=== PATIENT | male | born 1935 | race Caucasian/White ===

== ENCOUNTER 2024-03-22 22:08 | Inpatient (IN) | payer MEDICARE, OTHER ==
[2024-03-22 22:26] LABS: BASOPHILS ABSOLUTE AUTO 0.04 K/uL (0.00-0.10); BASOPHILS PERCENT AUTO 0.1 % (0.1-1.3); HEMATOCRIT 30.7 % (38.4-49.7); HEMOGLOBIN 9.9 g/dL (12.9-16.9); IMMATURE GRAN PERCENT AUTO 1.4 % (0.0-0.7); LYMPHOCYTES ABSOLUTE AUTO 1.06 K/uL (0.8-3.3); MEAN CORPUSCULAR HGB CONC 32.2 g/dL (31.6-35.5); MEAN CORPUSCULAR VOLUME 77.5 fL (81.4-99.0); MONOCYTES ABSOLUTE AUTO 1.73 K/uL (0.20-0.90); MONOCYTES PERCENT AUTO 4.9 % (3.3-12.6); NEUTROPHILS ABSOLUTE AUTO 31.83 K/uL (1.0-7.6); NEUTROPHILS PERCENT AUTO 90.6 % (40.0-78.1); PLATELET COUNT,PLT 155 K/uL (130-375); RED BLOOD CELL COUNT 3.96 M/uL (4.14-5.76)
[2024-03-22 22:31] LABS: EOSINOPHILS ABSOLUTE AUTO 0.01 K/uL (0.00-0.40); WHITE BLOOD CELL COUNT,WBC 35.2 K/uL (3.2-11.0)
[2024-03-22 22:48] LABS: APPEARANCE,URINE TURBID (CLEAR); BILIRUBIN,URINE NEGATIVE (NEGATIVE); COLOR,URINE YELLOW (YELLOW); GLUCOSE,URINE NEGATIVE (NEGATIVE); KETONES,URINE NEGATIVE (NEGATIVE); LEUKOCYTE ESTERASE,URINE LARGE (NEGATIVE); NITRITE,URINE NEGATIVE (NEGATIVE); OCCULT BLOOD,URINE LARGE (NEGATIVE); PH,URINE 5.5 (5.0-8.0); PROTEIN,URINE >=300 mg/dL (NEGATIVE); UROBILINOGEN,URINE 0.2 EU/dL (0.2-1.0)
[2024-03-22 22:55] LABS: ALANINE AMINOTRANSFERASE,ALT 14 U/L (12-78); ALBUMIN 2.6 g/dL (3.4-5.0); ALKALINE PHOSPHATASE 115 U/L (46-116); ASPARTATE AMNIOTRANSFERASE,AST 27 U/L (15-37); BILIRUBIN TOTAL 1.1 mg/dL (0.2-1.0); BLOOD UREA NITROGEN,BUN 38 mg/dL (7-18); C-REACTIVE PROTEIN 20.43 mg/dL (<0.50); CALCIUM 7.8 mg/dL (8.5-10.1); CARBON DIOXIDE,CO2 25 mmol/L (21-32); CHLORIDE,CL 104 mmol/L (100-108); CREATININE 2.4 mg/dL (0.8-1.3); EST CRCL DRUG DOSING (CG) 21.68 mL/min; ESTIMATED GFR 25 mL/min (>60); GLUCOSE RANDOM 106 mg/dL (74-106); POTASSIUM,K 3.1 mmol/L (3.6-5.2); PROTEIN TOTAL,TP 6.6 g/dL (6.4-8.2); SODIUM,NA 141 mmol/L (140-148)
[2024-03-22 23:07] LABS: A/G RATIO 0.7 (1.2-2.2); ANION GAP 15.1 mmol/L (5.0-14.0); LACTIC ACID 2.5 mmol/L (0.4-2.0)
[2024-03-22 23:18] LABS: AMORPHOUS SEDIMENT,URINE NOT SEEN; BACTERIA,URINE MANY; EPITHELIAL CELLS,URINE FEW; MUCUS,URINE FEW; WBC,URINE 75-100 (0-5)
[2024-03-23] MEDS: cefTRIAXone 2 GM in Sodium Chloride 0.9% 50 ML IV ONE (00:40)
[2024-03-23] MEDS: metroNIDAZOLE/Normal Saline 500 MG in Premix Bag 1 BAG IV ONE (00:40)
[2024-03-23] MEDS: VANCOmycin 1.5 GM in Sodium Chloride 0.9% 250 ML IV ONE (00:41)
[2024-03-23] MEDS: Sodium Chloride 0.9% 500 ML IV ONE (00:44)
[2024-03-23] MEDS: Acetaminophen 325 MG Tab PO ONE (01:38)
[2024-03-23] MEDS ORDERED: Ondansetron 4 MG Tab.DIS PO PRN (02:07)
[2024-03-23] MEDS ORDERED: Cyclobenzaprine 10 MG Tab PO PRN (02:07)
[2024-03-23] MEDS ORDERED: Ondansetron 4 MG/2 ML SDV IV PRN (02:07)
[2024-03-23] MEDS ORDERED: Melatonin 3 MG Tab PO PRN (02:07)
[2024-03-23] MEDS ORDERED: Acetaminophen 325 MG Tab PO PRN (02:07)
[2024-03-23] MEDS: Albuterol/Ipratropium 3.0-0.5 MG/3 ML Neb Soln NEB SCH (02:53)
[2024-03-23] MEDS: Sodium Chloride 0.9% 1,000 ML IV SCH ×2 (02:57→21:59)
[2024-03-23 03:41] LABS: HEMOGLOBIN 9.1 g/dL (12.9-16.9); MEAN CORPUSCULAR HGB CONC 32.5 g/dL (31.6-35.5); MEAN CORPUSCULAR VOLUME 76.9 fL (81.4-99.0); RED BLOOD CELL COUNT 3.64 M/uL (4.14-5.76)
[2024-03-23 03:57] LABS: CALCIUM 7.4 mg/dL (8.5-10.1); CREATININE 2.4 mg/dL (0.8-1.3); EST CRCL DRUG DOSING (CG) 23.1 mL/min; MAGNESIUM 1.1 mg/dL (1.8-2.4)
[2024-03-23 03:58] LABS: ANION GAP 15.8 mmol/L (5.0-14.0); POTASSIUM,K 2.8 mmol/L (3.6-5.2)
[2024-03-23] MEDS: Magnesium Sulfate/Water Premix 2 GM in Premix Bag 1 BAG IV SCH (04:57)
[2024-03-23] MEDS: Potassium Chloride 10 MEQ in Premix Bag 1 BAG IV ONE ×2 (05:01→06:10)
[2024-03-23] MEDS: metroNIDAZOLE/Normal Saline 500 MG in Premix Bag 1 BAG IV SCH ×2 (05:06→09:07)
[2024-03-23] MEDS: Potassium Chloride 20 MEQ Tab.ER PO ONE (05:07)
[2024-03-23] MEDS: Acetaminophen 500 MG Tab PO SCH (05:07)
[2024-03-23] MEDS: Pantoprazole 40 MG Tab.CR PO SCH (08:06)
[2024-03-23] MEDS: Potassium Chloride 20 MEQ Tab.ER PO SCH (08:07)
[2024-03-23] MEDS: Furosemide 40 MG Tab PO SCH (09:56)
[2024-03-23] MEDS: Spironolactone 25 MG Tab PO SCH (09:58)
[2024-03-23] MEDS: Lactobacillus Rhamnosus GG (Probiotic) Cap PO SCH (09:59)
[2024-03-23] MEDS: DULoxetine 30 MG Cap PO SCH (09:59)
[2024-03-23] MEDS: Apixaban 5 MG Tab PO SCH (10:00)
[2024-03-23] MEDS: Ferrous Sulfate 325 MG Tab PO SCH (10:01)
[2024-03-23] MEDS: Mirabegron 25 MG Tab Extended Release PO SCH (10:01)
[2024-03-23 11:00] LABS: POTASSIUM,K 3.2 mmol/L (3.6-5.2); VANCOMYCIN RANDOM 11.6 ug/mL (0.0-50.0)
[2024-03-23] MEDS: cefTRIAXone 1 GM in Sodium Chloride 0.9% 50 ML IV SCH (11:27)
[2024-03-23] MEDS: Magnesium Oxide 400 MG Tab PO SCH (11:34)
[2024-03-23] MEDS: Albuterol 0.083% 2.5 MG/3 ML Neb Soln NEB PRN (16:40)
[2024-03-23] MEDS: traMADol 50 MG Tab PO PRN (17:30)
[2024-03-23 18:04] LABS: HEMATOCRIT 29.7 % (38.4-49.7); HEMOGLOBIN 9.6 g/dL (12.9-16.9); MEAN CORPUSCULAR HEMOGLOBIN 24.7 pg (31.6-35.5); MEAN CORPUSCULAR HGB CONC 32.3 g/dL (31.6-35.5); MEAN CORPUSCULAR VOLUME 76.5 fL (81.4-99.0); RED BLOOD CELL COUNT 3.88 M/uL (4.14-5.76); WHITE BLOOD CELL COUNT,WBC 22.9 K/uL (3.2-11.0)
[2024-03-23 18:30] LABS: CALCIUM 7.8 mg/dL (8.5-10.1); CREATININE 2.5 mg/dL (0.8-1.3); EST CRCL DRUG DOSING (CG) 22.17 mL/min; POTASSIUM,K 3.6 mmol/L (3.6-5.2)
[2024-03-23 18:34] LABS: ANION GAP 17.6 mmol/L (5.0-14.0)
[2024-03-23] MEDS: Diltiazem IR 30 MG Tab PO SCH (19:50)
[2024-03-23] MEDS: Tamsulosin 0.4 MG Cap.ER PO SCH (20:10)
[2024-03-23] MEDS: Apixaban 2.5 MG Tab PO SCH (20:10)
[2024-03-23] MEDS: Sennosides 8.6 MG Tab PO SCH (20:10)
[2024-03-23] MEDS: VANCOmycin 1 GM in Sodium Chloride 0.9% 250 ML IV SCH (20:11)
[2024-03-24 05:27] LABS: HEMATOCRIT 30.9 % (38.4-49.7); HEMOGLOBIN 9.9 g/dL (12.9-16.9); MEAN CORPUSCULAR HEMOGLOBIN 24.9 pg (31.6-35.5); RED BLOOD CELL COUNT 3.98 M/uL (4.14-5.76); WHITE BLOOD CELL COUNT,WBC 14.3 K/uL (3.2-11.0)
[2024-03-24 05:41] LABS: MEAN CORPUSCULAR VOLUME 77.6 fL (81.4-99.0)
[2024-03-24 06:22] LABS: ANION GAP 11.7 mmol/L (5.0-14.0); CALCIUM 7.5 mg/dL (8.5-10.1); CREATININE 2.3 mg/dL (0.8-1.3); EST CRCL DRUG DOSING (CG) 24.1 mL/min; MAGNESIUM 2.5 mg/dL (1.8-2.4)
[2024-03-24] MEDS ORDERED: Non-Formulary Medication 1 Each (Omeprazole [Omeprazole] 20 MG Capsule.Dr) PO SCH (09:00)
[2024-03-24] MEDS ORDERED: Sodium Chloride 0.9% 10 ML Syringe IV PRN (15:14)
[2024-03-25 05:42] LABS: HEMATOCRIT 25.6 % (38.4-49.7); HEMOGLOBIN 8.5 g/dL (12.9-16.9); MEAN CORPUSCULAR HEMOGLOBIN 24.9 pg (31.6-35.5); MEAN CORPUSCULAR HGB CONC 33.2 g/dL (31.6-35.5); MEAN CORPUSCULAR VOLUME 74.9 fL (81.4-99.0); RED BLOOD CELL COUNT 3.42 M/uL (4.14-5.76); WHITE BLOOD CELL COUNT,WBC 11.5 K/uL (3.2-11.0)
[2024-03-25 05:57] LABS: CALCIUM 7.7 mg/dL (8.5-10.1); CREATININE 1.9 mg/dL (0.8-1.3); EST CRCL DRUG DOSING (CG) 29.17 mL/min; MAGNESIUM 2.2 mg/dL (1.8-2.4); POTASSIUM,K 4.1 mmol/L (3.6-5.2)
[2024-03-25 05:59] LABS: ANION GAP 14.1 mmol/L (5.0-14.0)
[2024-03-25] MEDS ORDERED: Meropenem 1 GM in Sodium Chloride 0.9% 100 ML IV SCH (08:15)
[2024-03-25] MEDS: Meropenem 1 GM in Sodium Chloride 0.9% 100 ML IV SCH (08:31)
[2024-03-26 05:25] LABS: HEMOGLOBIN 8.9 g/dL (12.9-16.9); MEAN CORPUSCULAR HEMOGLOBIN 24.4 pg (31.6-35.5); RED BLOOD CELL COUNT 3.65 M/uL (4.14-5.76); WHITE BLOOD CELL COUNT,WBC 10.5 K/uL (3.2-11.0)
[2024-03-26 05:40] LABS: CREATININE 1.8 mg/dL (0.8-1.3); EST CRCL DRUG DOSING (CG) 30.79 mL/min; POTASSIUM,K 4.4 mmol/L (3.6-5.2)
[2024-03-26 05:44] LABS: ANION GAP 15.4 mmol/L (5.0-14.0)
[2024-03-26 08:09] LABS: RETICULOCYTE COUNT PERCENT 0.55 % (0.53-2.48)
[2024-03-26 08:40] LABS: IRON,FE 7 ug/dL (65-175); PERCENT FE SATURATION 4 % (20-55); TOTAL IRON BINDING CAPACITY 176 ug/dl (250-450)
[2024-03-26 08:54] LABS: FOLIC ACID 18.7 ng/ml (8.6-58.9)
[2024-03-26] MEDS: Sodium Ferric Gluconate Cmplex 250 MG in Sodium Chloride 0.9% 100 ML IV ONE (12:14)
[2024-03-26] MEDS: Ferrous Sulfate 325 MG Tab PO SCH (17:15)
[2024-03-26] MEDS: Sennosides/Docusate Sodium 50-8.6 MG Tab PO PRN (17:17)
[2024-03-27 06:29] LABS: CALCIUM 8.1 mg/dL (8.5-10.1); CREATININE 1.6 mg/dL (0.8-1.3); EST CRCL DRUG DOSING (CG) 34.64 mL/min; MAGNESIUM 1.9 mg/dL (1.8-2.4); POTASSIUM,K 4.5 mmol/L (3.6-5.2)
[2024-03-27 06:37] LABS: ANION GAP 14.5 mmol/L (5.0-14.0)
[2024-03-27] MEDS: Magnesium Hydroxide 400 MG/5 ML Susp 30 ML Cup PO PRN (09:02)
[2024-03-27] MEDS: Sodium Ferric Gluconate Cmplex 250 MG in Sodium Chloride 0.9% 100 ML IV ONE (12:26)
[2024-03-28 06:15] LABS: HEMATOCRIT 28.2 % (38.4-49.7); HEMOGLOBIN 9.1 g/dL (12.9-16.9); MEAN CORPUSCULAR HEMOGLOBIN 24.1 pg (31.6-35.5); MEAN CORPUSCULAR HGB CONC 32.3 g/dL (31.6-35.5); MEAN CORPUSCULAR VOLUME 74.8 fL (81.4-99.0); RED BLOOD CELL COUNT 3.77 M/uL (4.14-5.76); WHITE BLOOD CELL COUNT,WBC 12.1 K/uL (3.2-11.0)
[2024-03-28 06:29] LABS: A/G RATIO 0.5 (1.2-2.2); ALANINE AMINOTRANSFERASE,ALT 18 U/L (12-78); ALBUMIN 2.1 g/dL (3.4-5.0); ALKALINE PHOSPHATASE 229 U/L (46-116); ASPARTATE AMNIOTRANSFERASE,AST 35 U/L (15-37); BILIRUBIN DIRECT 0.23 mg/dL (0.0-0.2); BILIRUBIN INDIRECT 0.47; BILIRUBIN TOTAL 0.7 mg/dL (0.2-1.0); BLOOD UREA NITROGEN,BUN 26 mg/dL (7-18); C-REACTIVE PROTEIN 8.75 mg/dL (<0.50); CALCIUM 8.2 mg/dL (8.5-10.1); CARBON DIOXIDE,CO2 23 mmol/L (21-32); CHLORIDE,CL 105 mmol/L (100-108); CREATININE 1.4 mg/dL (0.8-1.3); EST CRCL DRUG DOSING (CG) 39.59 mL/min; ESTIMATED GFR 49 mL/min (>60); GLUCOSE RANDOM 95 mg/dL (74-106); MAGNESIUM 1.9 mg/dL (1.8-2.4); POTASSIUM,K 4.8 mmol/L (3.6-5.2); PROTEIN TOTAL,TP 6.4 g/dL (6.4-8.2); SODIUM,NA 138 mmol/L (140-148)
[2024-03-28 06:33] LABS: ANION GAP 14.8 mmol/L (5.0-14.0)
[2024-03-28] MEDS: Ertapenem 1 GM in Sodium Chloride 0.9% 50 ML IV SCH (17:01)
[2024-03-28] MEDS: Apixaban 5 MG Tab PO SCH (20:01)
[2024-03-29 05:23] LABS: HEMATOCRIT 27.9 % (38.4-49.7); HEMOGLOBIN 9.1 g/dL (12.9-16.9); MEAN CORPUSCULAR HEMOGLOBIN 24.1 pg (31.6-35.5); MEAN CORPUSCULAR HGB CONC 32.6 g/dL (31.6-35.5); MEAN CORPUSCULAR VOLUME 73.8 fL (81.4-99.0); RED BLOOD CELL COUNT 3.78 M/uL (4.14-5.76); WHITE BLOOD CELL COUNT,WBC 11.8 K/uL (3.2-11.0)
[2024-03-29 05:55] LABS: ALBUMIN 2.2 g/dL (3.4-5.0); BLOOD UREA NITROGEN,BUN 20 mg/dL (7-18); CALCIUM 8.2 mg/dL (8.5-10.1); CARBON DIOXIDE,CO2 24 mmol/L (21-32); CHLORIDE,CL 103 mmol/L (100-108); CREATININE 1.4 mg/dL (0.8-1.3); EST CRCL DRUG DOSING (CG) 39.59 mL/min; ESTIMATED GFR 49 mL/min (>60); GLUCOSE RANDOM 90 mg/dL (74-106); PHOSPHORUS 2.9 mg/dL (2.5-4.9); POTASSIUM,K 4.9 mmol/L (3.6-5.2); SODIUM,NA 137 mmol/L (140-148)
[2024-03-29 05:59] LABS: ANION GAP 14.9 mmol/L (5.0-14.0)
[2024-03-29] MEDS: Ertapenem 1 GM in Sodium Chloride 0.9% 50 ML IV SCH (14:09)
[2024-03-30 05:52] LABS: HEMATOCRIT 26.9 % (38.4-49.7); HEMOGLOBIN 8.9 g/dL (12.9-16.9); MEAN CORPUSCULAR HEMOGLOBIN 24.5 pg (31.6-35.5); MEAN CORPUSCULAR HGB CONC 33.1 g/dL (31.6-35.5); RED BLOOD CELL COUNT 3.64 M/uL (4.14-5.76); WHITE BLOOD CELL COUNT,WBC 10.8 K/uL (3.2-11.0)
[2024-03-30 06:23] LABS: ALBUMIN 2.4 g/dL (3.4-5.0); BLOOD UREA NITROGEN,BUN 20 mg/dL (7-18); CALCIUM 8.3 mg/dL (8.5-10.1); CARBON DIOXIDE,CO2 24 mmol/L (21-32); CHLORIDE,CL 103 mmol/L (100-108); CREATININE 1.4 mg/dL (0.8-1.3); EST CRCL DRUG DOSING (CG) 39.59 mL/min; ESTIMATED GFR 49 mL/min (>60); GLUCOSE RANDOM 90 mg/dL (74-106); PHOSPHORUS 3.4 mg/dL (2.5-4.9); POTASSIUM,K 5.1 mmol/L (3.6-5.2); SODIUM,NA 135 mmol/L (140-148)
[2024-03-30 06:25] LABS: ANION GAP 13.1 mmol/L (5.0-14.0)
[2024-03-30 06:43] LABS: MEAN CORPUSCULAR VOLUME 73.9 fL (81.4-99.0)
[2024-03-30] MEDS: Ertapenem 1 GM in Sodium Chloride 0.9% 50 ML IV SCH (11:57)
[2024-03-31 05:50] LABS: HEMATOCRIT 29.8 % (38.4-49.7); HEMOGLOBIN 9.7 g/dL (12.9-16.9); MEAN CORPUSCULAR HEMOGLOBIN 24.2 pg (31.6-35.5); MEAN CORPUSCULAR HGB CONC 32.6 g/dL (31.6-35.5); MEAN CORPUSCULAR VOLUME 74.3 fL (81.4-99.0); WHITE BLOOD CELL COUNT,WBC 14.2 K/uL (3.2-11.0)
[2024-03-31 06:10] LABS: C-REACTIVE PROTEIN 6.29 mg/dL (<0.50); CALCIUM 8.4 mg/dL (8.5-10.1); CREATININE 1.5 mg/dL (0.8-1.3); EST CRCL DRUG DOSING (CG) 36.95 mL/min; POTASSIUM,K 5.8 mmol/L (3.6-5.2)
[2024-03-31 06:13] LABS: ANION GAP 14.8 mmol/L (5.0-14.0)
[2024-03-31 06:14] LABS: RED BLOOD CELL COUNT 4.01 M/uL (4.14-5.76)
[2024-03-31] MEDS: Ertapenem 1 GM in Sodium Chloride 0.9% 50 ML IV SCH (17:00)
[2024-04-01 05:18] LABS: HEMATOCRIT 31.6 % (38.4-49.7); MEAN CORPUSCULAR HEMOGLOBIN 24.3 pg (31.6-35.5); MEAN CORPUSCULAR HGB CONC 31.6 g/dL (31.6-35.5); MEAN CORPUSCULAR VOLUME 76.7 fL (81.4-99.0); RED BLOOD CELL COUNT 4.12 M/uL (4.14-5.76); WHITE BLOOD CELL COUNT,WBC 10.7 K/uL (3.2-11.0)
[2024-04-01 05:37] LABS: CALCIUM 8.6 mg/dL (8.5-10.1); CREATININE 1.8 mg/dL (0.8-1.3); EST CRCL DRUG DOSING (CG) 30.79 mL/min; POTASSIUM,K 5.6 mmol/L (3.6-5.2)
[2024-04-01 05:47] LABS: ANION GAP 15.6 mmol/L (5.0-14.0)
[2024-04-01] MEDS: Ertapenem 1 GM in Sodium Chloride 0.9% 50 ML IV SCH (12:55)
[2024-04-01] MEDS: Hypromellose 0.3% Ophth Soln 15 ML Bottle EYEBOTH PRN (12:56)
[2024-04-02 05:29] LABS: CALCIUM 8.3 mg/dL (8.5-10.1); CREATININE 1.6 mg/dL (0.8-1.3); EST CRCL DRUG DOSING (CG) 34.64 mL/min; POTASSIUM,K 5.3 mmol/L (3.6-5.2)
[2024-04-02 05:42] LABS: ANION GAP 15.3 mmol/L (5.0-14.0)
[2024-04-02] MEDS: Albuterol/Ipratropium 3.0-0.5 MG/3 ML Neb Soln NEB SCH (13:50)
[2024-04-03 05:56] LABS: HEMATOCRIT 31.1 % (38.4-49.7); HEMOGLOBIN 9.9 g/dL (12.9-16.9); MEAN CORPUSCULAR HEMOGLOBIN 24.3 pg (31.6-35.5); MEAN CORPUSCULAR HGB CONC 31.8 g/dL (31.6-35.5); MEAN CORPUSCULAR VOLUME 76.4 fL (81.4-99.0); RED BLOOD CELL COUNT 4.07 M/uL (4.14-5.76)
[2024-04-03 06:13] LABS: CALCIUM 8.7 mg/dL (8.5-10.1); CREATININE 1.8 mg/dL (0.8-1.3); EST CRCL DRUG DOSING (CG) 30.79 mL/min; POTASSIUM,K 5.2 mmol/L (3.6-5.2)
[2024-04-03 06:17] LABS: ANION GAP 16.2 mmol/L (5.0-14.0)
[2024-04-03 11:47] VITALS: BP 102/60; PULSE 54
== END 2024-04-03 12:55 | DRG 871 ==
LOC: JP.ED 22:08 → JP.MS 03-23 01:23
PROVIDERS: ADMIT Registered Nurse; ATTEND Internal Medicine
PROC: 02HV33Z Insertion of Infusion Device into Superior Vena Cava, Percutaneous Approach (ICD-10-PCS; principal; 2024-03-23)
PROC: 3E03329 Introduction of Other Anti-infective into Peripheral Vein, Percutaneous Approach (ICD-10-PCS; 2024-03-23)
DX: A41.51 Sepsis due to Escherichia coli [E. coli] (principal); J18.9 Pneumonia, unspecified organism; N39.0 Urinary tract infection, site not specified; J15.5 Pneumonia due to Escherichia coli; J96.01 Acute respiratory failure with hypoxia; N17.9 Acute kidney failure, unspecified; A08.11 Acute gastroenteropathy due to Norwalk agent; N30.01 Acute cystitis with hematuria; I48.91 Unspecified atrial fibrillation; I10 Essential (primary) hypertension; K59.09 Other constipation; E11.9 Type 2 diabetes mellitus without complications; R65.20 Severe sepsis without septic shock; E87.6 Hypokalemia; Z66 Do not resuscitate; K21.9 Gastro-esophageal reflux disease without esophagitis; D50.9 Iron deficiency anemia, unspecified; S32.402D Unspecified fracture of left acetabulum, subsequent encounter for fracture with routine healing; Z79.1 Long term (current) use of non-steroidal anti-inflammatories (NSAID); Z79.2 Long term (current) use of antibiotics; Z79.01 Long term (current) use of anticoagulants; Z79.899 Other long term (current) drug therapy; Z90.49 Acquired absence of other specified parts of digestive tract; Z98.890 Other specified postprocedural states
CPT/HCPCS: 36415; 71045 ×2; 80053; 81001; 83605; 83690; 84145; 85025; 86140; 87040 ×2; 87070; 87077 ×3; 87086; 87088; 87186 ×3; 87205; 96365; 96368; 99285 ×2; J0696; J1836; J3371; J3490; J7040; J7050; 70450; 73502-26-LT; 73502-LT; 73700-26-LT; 73700-LT; 76377; 80048; 80069; 80076; 80202; 82607; 82728; 82746; 83550; 83615; 83735; 84132; 85027; 85045; 92610-GN; 93005; 93010; 94640; 97110-GO; 97110-GP; 97161-GP; 97165-GO; 97530-GP; 99223; 99232; 99239; A9270-GY; C1751; J1335; J2185; J2916; J3475; J3480; J7030; J7620